=== PATIENT | male | born 1945 | race Caucasian/White ===

== ENCOUNTER 2017-03-13 07:10 | Day surgery (SDC) | payer OTHER ==
[~2017-03-13] VITALS: Ht 190.5 cm; Wt 122.5 kg
[~2017-03-13 07:10] MED LIST: CEFAZOLIN 2 GM IVPB PREMIX 50 ML IV ONE
[2017-03-13] MEDS ORDERED: fentaNYL CITRATE/PF 100 MCG/2 ML AMP ONE (07:36)
[2017-03-13] MEDS ORDERED: MIDAZOLAM HCL 5 MG/5 ML VIAL ONE ×2 (07:36→07:37)
[2017-03-13] MEDS ORDERED: SIMETHICONE 40 MG/0.6 ML ML ONE (07:37)
[2017-03-13] MEDS ORDERED: SUCCINYLCHOLINE CHLORIDE 20 MG/ML(QUELICIN) IVP ONE (09:05)
[2017-03-13] MEDS ORDERED: ONDANSETRON HCL 4 MG/2 ML VIAL IVP ONE (09:05)
[2017-03-13] MEDS ORDERED: KETOROLAC TROMETHAMINE 30 MG VIAL IVP ONE (09:05)
[2017-03-13] MEDS ORDERED: DEXAMETHASONE SOD PHOSPHATE 4 MG/ML VIAL IVP ONE (09:05)
[2017-03-13] MEDS ORDERED: SEVOFLURANE 15 MIN GAS INH ONE (09:05)
[2017-03-13] MEDS ORDERED: fentaNYL CITRATE 250 MCG/5 ML AMP IV ONE (09:05)
[2017-03-13] MEDS ORDERED: MIDAZOLAM HCL 5 MG/5 ML VIAL IVP ONE (09:05)
[2017-03-13] MEDS ORDERED: LR 1,000 ML IV.SOLN IV ONE (09:05)
[2017-03-13] MEDS ORDERED: PROPOFOL 200MG/ 20ML VIAL (DIPRIVAN) IV ONE (09:05)
[2017-03-13] MEDS ORDERED: LIDOCAINE/EPI 1% 1:100000 20 ML VIAL INJ ONE (09:05)
[2017-03-13] MEDS ORDERED: NS IRRIG SOLN 1000 ML IR ONE (09:05)
[2017-03-13] MEDS ORDERED: LR 1,000 ML IV SCH (12:35)
[2017-03-13] MEDS ORDERED: HYDROmorphone 2 MG/ML VIAL IVP PRN ×2 (12:45)
[2017-03-13] MEDS ORDERED: MEPERIDINE HCL/PF 25 MG/ML DISP.SYRIN IVP PRN (12:45)
[2017-03-13] MEDS ORDERED: HYDROmorphone 1 MG INJ. 1 MG/ML AMPUL IVP PRN (12:45)
[2017-03-13] MEDS ORDERED: ONDANSETRON HCL 4 MG/2 ML VIAL IVP PRN (14:00)
[2017-03-13 16:43] VITALS: BP_SYST 99
[2017-03-13 20:15] VITALS: BP_SYST 104
[2017-03-14 01:01] VITALS: BP_SYST 108
[2017-03-14 05:02] VITALS: BP_SYST 114
[2017-03-14 08:00] VITALS: BP_SYST 100
[2017-03-14 12:43] VITALS: BP_SYST 99
[2017-03-14 13:27] VITALS: BP_SYST 100
== END 2017-03-14 18:08 | disposition home or self-care (01) ==
LOC: SDS 07:10 → SMU 07:10 → EDSTATUS 07:30 → SMU 14:52 → SDS 03-14 18:08
PROVIDERS: ATTEND Otolaryngology
DX: E04.1 Nontoxic single thyroid nodule (principal); I10 Essential (primary) hypertension; E78.5 Hyperlipidemia, unspecified; E66.9 Obesity, unspecified; Z87.891 Personal history of nicotine dependence; Z86.73 Personal history of transient ischemic attack (TIA), and cerebral infarction without residual deficits; I48.91 Unspecified atrial fibrillation; I50.9 Heart failure, unspecified; I11.0 Hypertensive heart disease with heart failure; N40.0 Benign prostatic hyperplasia without lower urinary tract symptoms; I25.10 Atherosclerotic heart disease of native coronary artery without angina pectoris; I21.3 ST elevation (STEMI) myocardial infarction of unspecified site; Z90.49 Acquired absence of other specified parts of digestive tract; K21.9 Gastro-esophageal reflux disease without esophagitis
CPT/HCPCS: 60271; 88307; 93005; J0330; J0690; J1100; J1885; J2250; J2405; J2704; J3010; J7120

== ENCOUNTER 2023-08-06 08:15 | Emergency (ER) | payer OTHER ==
[~2023-08-06] VITALS: Ht 182.9 cm; Wt 108.9 kg
[2023-08-06 08:22] VITALS: BP_SYST 130; PULSE 103; RESP 22; RESP 24; TEMP 97.7; O2SAT 96
[2023-08-06] MEDS ORDERED: ALBUTEROL SULFATE 0.083% 2.5 MG/3 ML VIAL.NEB INH ONE (08:45)
[2023-08-06] MEDS ORDERED: IPRATROPIUM BROM 0.5 MG/2.5 ML VIAL.NEB (ATROVENT) INH ONE (08:45)
[2023-08-06 09:34] LABS: BASOPHILS % (AUTO) 0.2 % (0.0-2.0); EOSINOPHILS # (AUTO) 0.2 K/uL (0.0-0.4); EOSINOPHILS % (AUTO) 1.7 % (0.0-4.0); HEMATOCRIT 28.5 % (36-54); HEMOGLOBIN 9.3 g/dL (14.0-18.0); LYMPHOCYTES # (AUTO) 1.3 K/uL (1.0-5.5); LYMPHOCYTES % (AUTO) 12.6 % (20.5-51.5); MEAN CORPUSCULAR HEMOGLOBIN 31 pg (27-31); MEAN CORPUSCULAR HGB CONC 33 % (32-36); MEAN CORPUSCULAR VOLUME 94 fL (79.0-98.0); MONOCYTES # (AUTO) 1.1 K/uL (0.0-1.0); MONOCYTES % (AUTO) 10.6 % (1.7-9.3); NEUTROPHILS # (AUTO) 7.6 K/uL (1.8-7.7); NEUTROPHILS % (AUTO) 74.9 % (40.0-70.0); PLATELET COUNT (AUTO) 167 K/uL (130-430); RED BLOOD CELL COUNT(AUTO) 3.02 MIL/uL (4.2-6.2); RED CELL DISTRIBUTION WIDTH 13.9 % (9.0-15.0); WHITE BLOOD COUNT (AUTO) 10.1 K/uL (4.8-10.8)
[2023-08-06 09:49] LABS: ANION GAP 6 (5-15); CALCIUM 8.6 mg/dL (8.4-11.0); CARBON DIOXIDE 26 mmol/L (23-29); CHLORIDE 106 mmol/L (98-107); CREATININE 2.41 mg/dL (0.55-1.30); GLUCOSE 98 mg/dL (74-106); POTASSIUM 4.8 mmol/L (3.5-5.1); SODIUM SERUM 138 mmol/L (136-145); UREA NITROGEN, BLOOD 24 mg/dL (8-21)
[2023-08-06 09:53] LABS: INR 1.1 (0.80-1.20); PROTHROMBIN TIME 11.1 SECS (9.5-12.5)
[2023-08-06 09:54] LABS: COVID19 ANTIGEN SOFIA FIA NEGATIVE (NEGATIVE)
[2023-08-06 09:56] LABS: INFLUENZA TYPE B NEGATIVE (NEGATIVE)
[2023-08-06 10:07] LABS: INFLUENZA TYPE A Positive (NEGATIVE)
[2023-08-06] MEDS ORDERED: OSEL75CA PO (10:21)
[2023-08-06] MEDS ORDERED: PRED20TA PO (10:21)
[2023-08-06 10:22] LABS: ALANINE AMINOTRANSFERASE 31 U/L (12-78); ALBUMIN 2.8 g/dL (3.4-4.8); ASPARTATE AMINOTRANSFERASE 14 U/L (10-37); BILIRUBIN,DIRECT 0.2 mg/dL (0.0-0.3); TOTAL BILIRUBIN 0.7 mg/dL (0.0-1.0); TOTAL PROTEIN, SERUM 6.3 g/dL (6.4-8.3)
[2023-08-06 10:58] VITALS: BP_SYST 114; PULSE 75; RESP 18; TEMP 97; O2SAT 95
== END 2023-08-06 10:53 | disposition home or self-care (01) ==
LOC: SED 08:15
DX: J10.1 Influenza due to other identified influenza virus with other respiratory manifestations (principal); J44.9 Chronic obstructive pulmonary disease, unspecified; Z20.822 Contact with and (suspected) exposure to COVID-19
CPT/HCPCS: 36415; 71045; 80048; 80076; 83605; 83880; 84484; 85025; 85610-TC; 85730-TC; 94640; 99284